=== PATIENT | male | born 1990 | race Two or more races ===

== ENCOUNTER 2025-01-19 12:49 | Inpatient (IN) | payer OTHER, MEDICAID ==
[~2025-01-19] VITALS: Ht 170.2 cm; Wt 73.3 kg
--- NOTE | 2025-01-19 14:01 | ED.PDOC ---
GI ASSESSMENT HPI Comments This is a 34 year old male presenting to the ED with chief complaint of abdominal pain. Patient reports that he has been experiencing diffuse abdominal pain with associated nausea, vomiting, and diarrhea intermittently for the past 2 weeks. Patient relays that he went to urgent care, but was advised to come to the ED due to his symptoms. Patient denies any fever, chills, hematemesis, melena, or syncope. Chief Complaint: Abdominal Pain Time Seen by MD: 13:57 Reviewed Notes: Nurses Notes, Medications, Allergies Allergies: Coded Allergies: NO KNOWN ALLERGIES (Unverified , 01/19/25) Information Source: Patient Mode of Arrival: Ambulatory Timing: Days Duration: Since onset Prehospital treatment: None Quality: Aching Vomitus: Watery Stool: Watery Severity: Moderate Recent: None Recent Hx of: None Pain Location: Diffuse Modifying Factors: Nothing Associated sign and symptoms: Nausea, Vomiting, Diarrhea, Abdominal Pain Past Medical History PAST MEDICAL HISTORY: Denies Surgical History: Denies all surgeries Family History Family History: Reviewed,noncontributory to illness Social History Smoker: Non-Smoker Alcohol: Denies ETOH Use Drugs: Denies Drug Use Lives In: Home Constitutional: denies: chills, diaphoresis, fatigue, fever, malaise, sweats, weakness, others EENTM: denies: blurred vision, double vision, ear bleeding, ear discharge, ear drainage, ear pain, ear ringing, eye pain, eye redness, hearing loss, mouth pain, mouth swelling, nasal discharge, nose bleeding, nose congestion, nose pain, photophobia, tearing, throat pain, throat swelling, voice changes, others Respiratory: denies: cough, hemoptysis, orthopnea, SOB at rest, shortness of breath, SOB with excertion, stridor, wheezing, others Cardiovascular: denies: chest pain, dizzy spells, diaphoresis, Dyspnea on exertion, edema, irregular heart beat, left arm pain, lightheadedness, palpitations, PND, syncope, others Gastrointestinal: reports: abdominal pain, diarrhea, nausea, vomiting; denies: abdomen distended, blood streaked bowels, constipated, dysphagia, difficulty swallowing, hematemesis, melena, poor appetite, poor fluid intake, rectal bleeding, rectal pain, others Genitourinary: denies: burning, dysuria, flank pain, frequency, hematuria, incontinence, penile discharge, penile sore, pain, testicle pain, testicle swelling, urgency, others Neurological: denies: dizziness, fainting, headache, left sided numbness, left sided weakness, numbness, paresthesia, pre-existing deficit, right sided numbness, right sided weakness, seizure, speech problems, tingling, tremors, weakness, others Musculoskeletal: denies: back pain, gout, joint pain, joint swelling, muscle pain, muscle stiffness, neck pain, others Integumetry: denies: bruises, change in color, change in hair/nails, dryness, laceration, lesions, lumps, rash, wounds, others Allergic/Immunocompromised: denies: Difficulty Healing, Frequent Infections, Hives, Itching, others Hematologic/Lymphatic: denies: anemia, blood clots, easy bleeding, easy bruising, swollen glands, others Endocrine: denies: excessive hunger, excessive sweating, excessive thirst, excessive urination, flushing, intolerance to cold, intolerance to heat, unexplained weight gain, unexplained weight loss, others Psychiatric: denies: anxiety, bipolar disorder, depression, hopeless, panic disorder, schizophrenia, sleepless, suicidal, others All Other Systems: Reviewed and Negative Physical Exam General Appearance: No Apparent Distress, Normal HEENT: Normal ENT Inspection, Pharynx Normal, TMs Normal Neck: Full Range of Motion, Non-Tender, Normal, Normal Inspection Respiratory: Chest Non-Tender, Lungs Clear, No Accessory Muscle Use, No Respiratory Distress, Normal Breath Sounds Cardiovascular: No Edema, No JVD, No Murmur, No Gallop, Normal Peripheral Pulses, Regular Rate/Rhythm Breast Exam: Deferred Gastrointestinal: No Organomegaly, No Pulsatile Mass, Normal Bowel Sounds, Soft, Tenderness (Diffuse abdominal tenderness) Genitalia: Deferred Pelvic: Deferred Rectal: Deferred Extremities: No calf tenderness, Normal capillary refill, Normal inspection, Normal range of motion, Non-tender, No pedal edema Musculoskeletal : Apperance: Normal Neurologic: Alert, ehs manager II-XII nml as Tested, No Motor Deficits, Normal Affect, Normal Mood, No Sensory Deficits Cerebellar Function: Normal Reflexes: Normal Skin: Dry, Normal Color, Warm Lymphatic: No Adenopathy Was a procedure done? Was a procedure done?: No GI differential Dx Differential Diagnosis: Gastritis/PUD, Gastroenteritis, GI hemorrhage, PID, UTI, Urolithiasis, Dehydration, Electrolyte Imbalance, Food Poisoning, Hypovolemia X-Ray, Labs, Meds, VS Vital Signs Date Time Temp Pulse Resp B/P (MAP) Pulse Ox O2 Delivery O2 Flow Rate FiO2 01/20/25 07:30 69 17 97 Room Air* 0 21 01/20/25 07:30 97.8 69 17 117/72 (87) 97 97.8 01/20/25 06:35 98.2 78 18 114/68 (83) 97 98.2 01/20/25 05:42 Room Air* 0 21 01/20/25 03:30 98.1 80 16 103/69 (80) 100 98.1 01/20/25 00:48 98.1 91 18 110/65 (80) 99 98.1 01/19/25 18:07 93 19 116/68 01/19/25 16:12 78 17 134/87 01/19/25 14:26 98.7 68 16 118/76 (90) 97 98.7 01/19/25 14:25 70 16 118/76 01/19/25 12:54 97.8 65 13 121/81 98 97.8 Lab Test 01/19/25 14:01 Range/Units White Blood Count 13.0 H 4.4-10.8 10^3/uL Red Blood Count 5.21 4.5-5.90 10^6/uL Hemoglobin 15.0 13.5-17.5 g/dL Hematocrit 44.7 41.0-53.0 % Mean Corpuscular Volume 85.8 80.0-100.0 fL Mean Corpuscular Hemoglobin 28.8 28.0-32.0 pg Mean Corpuscular Hemoglobin Concent 33.6 32.0-36.0 g/dL Red Cell Distribution Width 13.7 11.8-14.3 % Platelet Count 344 140-450 10^3/uL Mean Platelet Volume 8.5 6.9-10.8 fL Neutrophils (%) (Auto) 91.1 H 37.0-80.0 % Lymphocytes (%) (Auto) 5.5 L 10.0-50.0 % Monocytes (%) (Auto) 3.1 0.0-12.0 % Eosinophils (%) (Auto) 0.1 0.0-7.0 % Basophils (%) (Auto) 0.2 0.0-2.0 % Neutrophils # (Auto) 11.8 H 1.6-8.6 10 ^3/uL Lymphocytes # (Auto) 0.7 0.4-5.4 10 ^3/uL Monocytes # (Auto) 0.4 0-1.3 10 ^3/uL Eosinophils # (Auto) 0 0-0.8 10 ^3/uL Basophils # (Auto) 0 0-0.2 10 ^3/uL Nucleated Red Blood Cells 0.0 % Sodium Level 144 136-145 mmol/L Potassium Level 4.2 3.5-5.1 mmol/L Chloride Level 106 98-107 mmol/L Carbon Dioxide Level 25 20-31 mmol/L Anion Gap 13 5-15 Blood Urea Nitrogen 14 9-23 mg/dL Creatinine 1.01 0.700-1.30 mg/dL Glomerular Filtration Rate Calc 101 >90 mL/min BUN/Creatinine Ratio 13.9 10.0-20.0 Serum Glucose 120 H 74-106 mg/dL Calcium Level 10.2 8.7-10.4 mg/dL Total Bilirubin 0.5 0.2-1.0 mg/dL Aspartate Amino Transferase (AST) 17 13-40 U/L Alanine Aminotransferase (ALT) 40 7-40 U/L Alkaline Phosphatase 87 46-116 U/L Total Protein 7.3 5.7-8.2 g/dL Albumin 4.9 H 3.2-4.8 g/dL Lipase 44 12-53 U/L Current Medications Medications (Trade) Dose Ordered Sig/Kassie Route Start Time Stop Time Status Last Admin Sodium Chloride 1,000 ml @ 1,000 mls/hr Q1H ONCE IV 01/19/25 13:45 01/19/25 14:44 DC 01/19/25 14:26 Morphine Sulfate 4 mg ONCE ONCE IV 01/19/25 13:45 01/19/25 13:46 DC 01/19/25 14:25 Ondansetron HCl (Zofran) 4 mg ONCE ONCE IV 01/19/25 13:45 01/19/25 13:46 DC 01/19/25 14:25 Pantoprazole Sodium (Protonix) 40 mg ONCE ONCE IV 01/19/25 13:45 01/19/25 13:46 DC 01/19/25 14:25 Ketorolac Tromethamine (Toradol Injection) 15 mg ONCE ONCE IV 01/19/25 17:45 01/19/25 17:50 DC 01/19/25 18:07 Tamsulosin HCl (Flomax) 0.4 mg ONCE ONCE PO 01/19/25 17:45 01/19/25 17:50 DC 01/19/25 18:07 Morphine Sulfate 4 mg ONCE ONCE IV 01/19/25 17:45 01/19/25 17:50 DC 01/19/25 18:07 Ondansetron HCl (Zofran) 4 mg ONCE ONCE IV 01/19/25 17:45 01/19/25 17:50 DC 01/19/25 18:07 Time of 1ST Reevaluation: 14:57 Reevaluation 1ST: Unchanged Patient Education/Counseling: Diagnosis, Treatment Family Education/Counseling: No Family Present SEPSIS Sepsis Screen Date sepsis recognized/suspect: Jan 19, 2025 Time Sepsis recognized/suspect: 4 Recent Procedure: No On Antibiotic Therapy: No Respiratory Rate >20: No Heart Rate >90: No Temp<36 C (96.8 F) or >38.3 C: No SBP <90 or MAP <65 mmHG: No New Acute Mental Status Change: No Is the patient on CPAP, BIPAP,: No Physician Orders Ct Ab Pel With Iv Con Only (01/19/25 13:42) * Urology Consult (01/19/25 17:39) Vital Signs Date Time Temp Pulse Resp B/P (MAP) Pulse Ox O2 Delivery O2 Flow Rate FiO2 01/20/25 07:30 69 17 97 Room Air* 0 01/20/25 07:30 97.8 69 17 117/72 (87) 97 97.8 01/20/25 06:35 98.2 78 18 114/68 (83) 97 98.2 01/20/25 05:42 Room Air* 0 01/20/25 03:30 98.1 80 16 103/69 (80) 100 98.1 01/20/25 00:48 98.1 91 18 110/65 (80) 99 98.1 01/19/25 18:07 93 19 116/68 01/19/25 16:12 78 17 134/87 01/19/25 14:26 98.7 68 16 118/76 (90) 97 98.7 01/19/25 14:25 70 16 118/76 01/19/25 12:54 97.8 65 13 121/81 98 97.8 Laboratory Tests Test 01/19/25 14:01 White Blood Count 13.0 10^3/uL (4.4-10.8) H Departure 1 Departure Time of Disposition: 17:41 (Patient presented with abdominal pain that was concerning for possible appendicits, gastritis, cholecystitis, colitis, gastroenteritis, sbo, or orther possible surgical emergency. Data: 1. I ordered and reviewed the result of at least 3 labs including a CBC, BMP, and Urinalysis. 2. I independently interpreted the following tests: CT Abdomen and Pelvis is concerning for obstructing ureteral stone .Risk:This patient has a high risk of morbidity due to further diagnostic testing or treatment and may suffer from an acute abdominal process disorder. Workup reveals obstructing ureteral stone and patient should be admitted for further workup. and possible expert consultation. ) Impression: Primary Impression: Ureteral colic Additional Impressions: Intractable abdominal pain Hydronephrosis Disposition: ADMITTED INPATIENT Admit to: Med Surg Condition: Guarded Critical Care Note Critical Care Time?: Yes Critical care comment: Intractable abdominal pain Authorized and Performed by: Gilson Mckeon MD Total critical care time: Approximately 38 minutes Due to a high probability of clinically significant, life threatening deterioration, the patient required my highest level of preparedness to intervene emergently and I personally spent this critical care time directly and personally managing the patient. This critical care time included obtaining a history; examining the patient; pulse oximetry; ordering and review of studies; arranging urgent treatment with development of a management plan; evaluation of patient's response to treatment; frequent reassessment; and, discussions with other providers. This critical care time was performed to assess and manage the high probability of imminent, life-threatening deterioration that could result in multi-organ failure. It was exclusive of separately billable procedures and treating other patients and teaching time. Please see my other sections and the rest of the note for further information on patient assessment and treatment. Stability Stability form required: No Heart Score Heart Score: Heart Score Response (Comments) Value History N/A 0 EKG N/A 0 Age N/A 0 Risk Factors N/A 0 Troponin N/A 0 Total 0 I personally scribed for GILSON MCKEON MD ([email or web address]) on 01/19/25 at 14:01. Electronically submitted by Aroldo Chester ([email or web address]). GILSON MCKEON MD Jan 19, 2025 14:01
[2025-01-19 14:24] LABS: Hematocrit 44.7 % (41.0-53.0); Hemoglobin 15.0 g/dL (13.5-17.5); Mean Corpuscular Hemoglobin 28.8 pg (28.0-32.0); Mean Corpuscular Volume 85.8 fL (80.0-100.0); Nucleated Red Blood Cells % 0.0 %
[2025-01-19] MEDS: ONDANSETRON HCL 4 MG/2 ML VIAL IV ONE ×2 (14:25→18:07)
[2025-01-19] MEDS: MORPHINE SULFATE 4 MG/ML SYR/VIAL IV ONE ×2 (14:25→18:07)
[2025-01-19] MEDS: PANTOPRAZOLE 40 MG/10 ML VIAL INJ IV ONE (14:25)
[2025-01-19] MEDS: SODIUM CHLORIDE 0.9% 1,000 ML IV ONE (14:26)
[2025-01-19 14:42] LABS: Alkaline Phosphatase 87 U/L (46-116); Anion Gap 13 (5-15); BUN/Creatinine Ratio 13.9 (10.0-20.0); Blood Urea Nitrogen 14 mg/dL (9-23); Calcium 10.2 mg/dL (8.7-10.4); Carbon Dioxide 25 mmol/L (20-31); Chloride 106 mmol/L (98-107); Lipase 44 U/L (12-53); Potassium 4.2 mmol/L (3.5-5.1); Sodium 144 mmol/L (136-145); Total Protein 7.3 g/dL (5.7-8.2)
[2025-01-19 14:43] LABS: Bilirubin, Total 0.5 mg/dL (0.2-1.0)
[2025-01-19 14:46] LABS: Alanine Aminotransferase 40 U/L (7-40); Albumin 4.9 g/dL (3.2-4.8); Glucose 120 mg/dL (74-106)
[2025-01-19] MEDS: IOHEXOL 300 MG/ML 100ML BOTTLE IJ ONE (16:08)
--- NOTE | 2025-01-19 17:31 | DVH ---
Exam: CT CT AB PEL WITH IV CON ONLY History: abdominal pain Comparison Study: None TECHNIQUE: Multidetector CT of the abdomen and pelvis with IV contrast. Axial, coronal and sagittal multiplanar reformats were obtained from the axial data set by the technologist. Radiation Dose Information: CT Dose: CTDI volume is 9.59 mGy. Dose-length product is 569.13 mGy*cm FINDINGS: Right basilar atelectasis. Partially visualized heart is unremarkable. Liver, spleen, pancreas and adrenal glands unremarkable. Cholelithiasis without evidence for acute cholecystitis. Punctate nonobstructing left renal calculus. Mild left hydroureteronephrosis with a 5 x 4 mm calculus over the left ureterovesical junction. Left kidney is unremarkable. Mild wall thickening of the Urinary bladder which is most likely from inadequate distention. Prostate is unremarkable. Stomach is unremarkable. Small bowel loops unremarkable. Is unremarkable. Large amount of fecal material within the ascending colon with moderate amount of fecal material within the transverse colon and descending colon. Small amount of fecal material within the sigmoid and rectum. Mild wall thickening of the rectum which is most likely from inadequate distention. No evidence of intraperitoneal free air or free fluid. No evidence of aortic aneurysm or dissection. No significant lymphadenopathy. Tiny fat containing umbilical hernia. Soft tissues unremarkable. No evidence of acute osseous abnormalities. Sclerotic focus over the right acetabulum which may represent a small bone island. IMPRESSION: 5 x 4 mm obstructing calculus over the left ureterovesical junction with associated mild left-sided hydroureteronephrosis
[2025-01-19] MEDS: KETOROLAC TROMETH 30 MG/ML 1ML VIAL IV ONE (18:07)
[2025-01-19] MEDS: TAMSULOSIN HYDROCHLORIDE 0.4 MG CAP PO ONE (18:07)
[2025-01-20 07:30] VITALS: PULSE 69; RESP 17; O2SAT 97
[2025-01-20] MEDS: ONDANSETRON HCL 4 MG/2 ML VIAL IV ONE (07:59)
[2025-01-20] MEDS: MORPHINE SULFATE 4 MG/ML SYR/VIAL IV ONE (08:00)
[2025-01-20] MEDS ORDERED: ACETAMINOPHEN 325 MG TAB PO PRN (08:45)
[2025-01-20] MEDS: MANNITOL FTV 25% 12.5 GM/50 ML 50 ML IV ONE ×2 (08:45→10:39)
--- NOTE | 2025-01-20 08:59 | DVHHPRES ---
History of Present Illness Resident Creating Document: JENI MCKEE History of Present Illness This is a 34-year-old male with no significant past medical history, prediabetes who presented to the ED with chief complaint of acute abdominal pain. Patient reports that he was on camping with her girlfriend and Sunday and Sunday early in the morning he started feeling fatigued with a associated nausea, vomiting and diffuse abdominal pain located in the upper abdomen and umbilical region. The patient rates the pain as 10/10 on the pain scale slightly diffuse in the upper abdomen w/o specific pattern of radiation. The patient also reports chills when he visit the urgent care previous to come to the ED but denied any fever or any additional symptoms. The patient also reported episodes of diarrhea two weeks back but no recent episode of diarrhea at this time. Upon arrival to the ED, initial CBC showed WBC of 13.0 and very mild NENITA with a cre atinine of 1.01. Lipase was normal range as well as liver enzymes. A CT of the abdomen and pelvis was performed showing a five X 4 mm obstructing calculi over the left ureterovesical junction with a associated mild left-sided hydroureteronephrosis. We will start the patient on IV fluids, tamsulosin, one dose of mannitol and pain medication with Tylenol and ketorolac. We will admit the patient for left-sided nephrolithiasis with associated hydroureteronephrosis. Past medical history: Prediabetes, dyslipidemia? Home medications: Multivitamins Surgical history: Denies Social history: Denies alcohol consumption, drugs or smoking. Patient lives with his father Cardiovascular: hyperipidemia Endocrine: Other (Prediabetes) Past Surgical History: None Family History: None Smoke: No ALCOHOL: none Drugs: None Lives: with Family Domestic Violence: Neg Review of Systems Constitutional: Yes: Chills, Weakness, Malaise; No: Fever, Sweats, Other Eyes: No: Pain, Vision change, Conjunctivae inflammation, Eyelid inflammation, Other, Redness ENT: No: Ear pain, Ear discharge, Nose pain, Nose discharge, Nose congestion, Mouth pain, Mouth swelling, Throat pain, Throat swelling, Other Respiratory: No: Cough, Dry, Shortness of breath, SOB with excertion, Wheezing, Hemoptysis, Pleuritic Pain, Sputum, Wheezing, Other Cardiovascular: No: Chest Pain, Palpitations, Orthopnea, Paroxysmal Noc. Dyspnea, Edema, Lt Headedness, Other Gastrointestinal: Nausea, Vomiting, Abdominal Pain; No: Diarrhea, Constipation, Melena, Hematochezia, Other Genitourinary: No Dysuria, No Frequency, No Incontinence, No Hematuria, No Retention, No Other Musculoskeletal: No: other, neck pain, shoulder pain, arm pain, back pain, hand pain, leg pain, foot pain Skin: No: Rash, Lesions, Jaundice, Bruising, Other Neurological: No: Weakness, Numbness, Incoordination, Change in speech, Confusion, Seizures, Other Allergies: Coded Allergies: NO KNOWN ALLERGIES (Unverified , 01/19/25) Exam Vital Signs Vital Signs Date Time Temp Pulse Resp B/P (MAP) Pulse Ox O2 Delivery O2 Flow Rate FiO2 01/20/25 08:00 69 17 117/72 01/20/25 07:30 97 Room Air* 0 21 01/20/25 07:30 97.8 97.8 General Appearance: Alert, Oriented X3, Cooperative, moderate distress HEENT: Atraumatic, PERRLA, EOMI, Mucous membr. moist/pink Respiratory: Clear to auscultation, Normal air movement Cardiovascular: Regular rate, Normal S1, Normal S2, No murmurs Abdominal: Normal bowel sounds, Soft, Other (There is tenderness to palpation in the upper abdomen and umbilical region, there is no left or right-sided costo vertebral angle tenderness at this time.) Extremities: No clubbing, No cyanosis, No edema, Normal pulses, No tenderness/swelling Skin: No rashes, No breakdown, No significant lesion Neuro: Normal gait, Normal speech, Strength at 5/5 X4 ext, Normal tone, Sensation intact, Cranial nerves 3-12 NL, Reflexes 2+ Psych/Mental Status: Mental status NL, Mood NL Labs/Xrays Labs Test 01/19/25 14:01 Range/Units White Blood Count 13.0 H 4.4-10.8 10^3/uL Red Blood Count 5.21 4.5-5.90 10^6/uL Hemoglobin 15.0 13.5-17.5 g/dL Hematocrit 44.7 41.0-53.0 % Mean Corpuscular Volume 85.8 80.0-100.0 fL Mean Corpuscular Hemoglobin 28.8 28.0-32.0 pg Mean Corpuscular Hemoglobin Concent 33.6 32.0-36.0 g/dL Red Cell Distribution Width 13.7 11.8-14.3 % Platelet Count 344 140-450 10^3/uL Mean Platelet Volume 8.5 6.9-10.8 fL Neutrophils (%) (Auto) 91.1 H 37.0-80.0 % Lymphocytes (%) (Auto) 5.5 L 10.0-50.0 % Monocytes (%) (Auto) 3.1 0.0-12.0 % Eosinophils (%) (Auto) 0.1 0.0-7.0 % Basophils (%) (Auto) 0.2 0.0-2.0 % Neutrophils # (Auto) 11.8 H 1.6-8.6 10 ^3/uL Lymphocytes # (Auto) 0.7 0.4-5.4 10 ^3/uL Monocytes # (Auto) 0.4 0-1.3 10 ^3/uL Eosinophils # (Auto) 0 0-0.8 10 ^3/uL Basophils # (Auto) 0 0-0.2 10 ^3/uL Nucleated Red Blood Cells 0.0 % Sodium Level 144 136-145 mmol/L Potassium Level 4.2 3.5-5.1 mmol/L Chloride Level 106 98-107 mmol/L Carbon Dioxide Level 25 20-31 mmol/L Anion Gap 13 5-15 Blood Urea Nitrogen 14 9-23 mg/dL Creatinine 1.01 0.700-1.30 mg/dL Glomerular Filtration Rate Calc 101 >90 mL/min BUN/Creatinine Ratio 13.9 10.0-20.0 Serum Glucose 120 H 74-106 mg/dL Calcium Level 10.2 8.7-10.4 mg/dL Total Bilirubin 0.5 0.2-1.0 mg/dL Aspartate Amino Transferase (AST) 17 13-40 U/L Alanine Aminotransferase (ALT) 40 7-40 U/L Alkaline Phosphatase 87 46-116 U/L Total Protein 7.3 5.7-8.2 g/dL Albumin 4.9 H 3.2-4.8 g/dL Lipase 44 12-53 U/L SEPSIS Sepsis Screen Date sepsis recognized/suspect: Jan 20, 2025 Time Sepsis recognized/suspect: 614 Recent Procedure: No On Antibiotic Therapy: No Respiratory Rate >20: No Heart Rate >90: No Temp<36 C (96.8 F) or >38.3 C: No SBP <90 or MAP <65 mmHG: No New Acute Mental Status Change: No Is the patient on CPAP, BIPAP,: No Physician Orders Admit (01/20/25 08:41) Code Status (01/20/25 08:41) Vital Signs .PER UNIT PROTOCOL (01/20/25 08:41) Review Orders With Adm.Md (01/20/25 08:41) Encourage Activity As Tolerate (01/20/25 08:41) Consistent [facility])Diabetes (01/20/25 Breakfast) Acetaminophen Tablet (Tylenol Tablet) (01/20/25 08:45) Notify Md Of Changes From Base (01/20/25 08:41) Advance Directive (01/20/25 08:41) Basic Metabolic Panel (01/21/25 04:00) Urinalysis (01/20/25 08:41) Complete Blood Count (01/21/25 04:00) Lipid Panel (01/20/25 08:41) Patient Condition (01/20/25 08:41) Allergies (01/20/25 08:41) Drug Screen (01/20/25 08:41) Hemoglobin A1c (01/20/25 08:41) NS (01/20/25 08:45) Ketorolac Injection (Toradol Injection) (01/20/25 08:45) Tamsulosin Hydrochloride (Flomax) (01/20/25 10:00) Mannitol Acute Renal Failure (01/20/25 08:45) Vital Signs Date Time Temp Pulse Resp B/P (MAP) Pulse Ox O2 Delivery O2 Flow Rate FiO2 01/20/25 08:00 69 17 117/72 01/20/25 07:30 69 17 97 Room Air* 0 21 01/20/25 07:30 97.8 69 17 117/72 (87) 97 97.8 01/20/25 06:35 98.2 78 18 114/68 (83) 97 98.2 01/20/25 05:42 Room Air* 0 21 01/20/25 03:30 98.1 80 16 103/69 (80) 100 98.1 Medications Medications Dose Ordered Sig/Kassie Route Start Time Stop Time Status Last Admin Dose Admin Morphine Sulfate 4 mg ONCE ONCE IV 01/20/25 07:45 01/20/25 07:46 DC 01/20/25 08:00 4 MG Ondansetron HCl 4 mg ONCE ONCE IV 01/20/25 07:45 01/20/25 07:46 DC 01/20/25 07:59 4 MG Assessment/Plan Assessment/Plan Assessment/plan Acute abdominal pain due to left-sided nephrolithiasis Acute left-sided nephrolithiasis with associated hydroureteronephrosis Possible acute viral gastroenteritis Mild NENITA likely due to VMN History of prediabetes History of dyslipidemia Plan -CT scan of the abdomen and pelvis showed a five X 4 mm obstructing calculus over the left ureterovesical junction with a associated mild left-sided hydroureteronephrosis -1 L of IV fluids was given in the ER -continue 0.9% NS at 100 cc/hour -start tamsulosin 0.4 mg daily -mannitol 12.5 single dose -pain medication with ketorolac Q6 PRN and Tylenol PRN -Will order kidney U/S -No need for urology consult at this time, will try medical approach based on kidney stone size. -Ordered Hba1c and lipid panel. will treat if needed Goals of care discussed with the patient and father at bedside, FULL CODE Plan discussed with Dr. Samuel Plan discussed with: Patient, Other (father) My Orders Orders - JENI MCKEE Procedure Category Date Status Time Admit ADMIT 01/20/25 Transmitted 08:41 Code Status CODE 01/20/25 Transmitted 08:41 Vital Signs KAILEE 01/20/25 Transmitted 08:41 Review Orders With KAILEE 01/20/25 Transmitted 08:41 Encourage Activity As KAILEE 01/20/25 Transmitted Tolerate 08:41 Consistent DIET 01/20/25 Transmitted Carb(Ccho)Diabetes Breakfast Acetaminophen Tablet PHA 01/20/25 Transmitted (Tylenol Tablet) 08:45 Notify Of Changes KAILEE 01/20/25 Transmitted From Base 08:41 Advance Directive [facility] 01/20/25 Transmitted 08:41 Basic Metabolic Panel LAB 01/21/25 Verified 04:00 Urinalysis LAB 01/20/25 Transmitted 08:41 Complete Blood Count LAB 01/21/25 Verified 04:00 Lipid Panel LAB 01/20/25 Transmitted 08:41 Patient Condition ORDERS 01/20/25 Transmitted 08:41 Allergies [facility] 01/20/25 Transmitted 08:41 Drug Screen LAB 01/20/25 Verified 08:41 Hemoglobin A1c LAB 01/20/25 Verified 08:41 NS PHA 01/20/25 Transmitted 08:45 Ketorolac Injection PHA 01/20/25 Verified (Toradol Injection) 08:45 Tamsulosin PHA 01/20/25 Verified Hydrochloride (Flomax) 10:00 Mannitol Acute Renal PHA 01/20/25 Verified Failure 08:45 Date of Service: Jan 20, 2025 Billing Provider: ENRIQUETA SAMUEL MD Common Visit Codes: [id number] INP/OBS CARE (HIGH) Secondary Visit Codes: [id number] CARE PLAN 30 MINUTES JENI MCKEE RESIDENT Jan 20, 2025 08:59
--- NOTE | 2025-01-20 09:54 | DVHINCON2 ---
Date of service: Jan 20, 2025 Referring Physician ER Reason for Consultation Left hydronephrosis 5 mm left distal ureteral stone History of Present Illness 34 year old male presenting to the ED with chief complaint of abdominal pain. Patient reports that he has been experiencing diffuse abdominal pain with associated nausea, vomiting, and diarrhea intermittently for the past 2 weeks. Patient relays that he went to urgent care, but was advised to come to the ED due to his symptoms. Patient denies any fever, chills, hematemesis, melena, or syncope. Chief Complaint: Abdominal Pain Reviewed Notes: Nurses Notes, Medications, Allergies Allergies: Coded Allergies: NO KNOWN ALLERGIES (Unverified , 01/19/25) Information Source: Patient Mode of Arrival: Ambulatory Timing: Days Duration: Since onset Prehospital treatment: None Quality: Aching Vomitus: Watery Stool: Watery Severity: Moderate Recent: None Recent Hx of: None Pain Location: Diffuse Modifying Factors: Nothing Associated sign and symptoms: Nausea, Vomiting, Diarrhea, Abdominal Pain Allergies: Coded Allergies: NO KNOWN ALLERGIES (Unverified , 01/19/25) Current Medications Current Medications Medications (Trade) Dose Ordered Sig/Kassie Route PRN Reason Start Time Stop Time Status Last Admin Acetaminophen (Tylenol Tablet) 650 mg Q6HP PRN PO PAIN SCALE 1-3 OR TEMP>100.4 01/20/25 08:45 Ketorolac Tromethamine (Toradol Injection) 15 mg Q6HPRN PRN IV Moderate pain 01/20/25 08:45 01/25/25 08:44 Tamsulosin HCl (Flomax) 0.4 mg DAILY@1900 PO 01/20/25 19:00 Review of Systems Constitutional: denies: chills, diaphoresis, fatigue, fever, malaise, sweats, weakness, others EENTM: denies: blurred vision, double vision, ear bleeding, ear discharge, ear drainage, ear pain, ear ringing, eye pain, eye redness, hearing loss, mouth pain, mouth swelling, nasal discharge, nose bleeding, nose congestion, nose pain, photophobia, tearing, throat pain, throat swelling, voice changes, others Respiratory: denies: cough, hemoptysis, orthopnea, SOB at rest, shortness of breath, SOB with excertion, stridor, wheezing, others Cardiovascular: denies: chest pain, dizzy spells, diaphoresis, Dyspnea on exertion, edema, irregular heart beat, left arm pain, lightheadedness, palpitations, PND, syncope, others Gastrointestinal: reports: abdominal pain, diarrhea, nausea, vomiting; denies: abdomen distended, blood streaked bowels, constipated, dysphagia, difficulty swallowing, hematemesis, melena, poor appetite, poor fluid intake, rectal bleeding, rectal pain, others Genitourinary: denies: burning, dysuria, flank pain, frequency, hematuria, incontinence, penile discharge, penile sore, pain, testicle pain, testicle swelling, urgency, others Neurological: denies: dizziness, fainting, headache, left sided numbness, left sided weakness, numbness, paresthesia, pre-existing deficit, right sided numbness, right sided weakness, seizure, speech problems, tingling, tremors, weakness, others Musculoskeletal: denies: back pain, gout, joint pain, joint swelling, muscle pain, muscle stiffness, neck pain, others Integumetry: denies: bruises, change in color, change in hair/nails, dryness, laceration, lesions, lumps, rash, wounds, others Allergic/Immunocompromised: denies: Difficulty Healing, Frequent Infections, Hives, Itching, others Hematologic/Lymphatic: denies: anemia, blood clots, easy bleeding, easy bruising, swollen glands, others Endocrine: denies: excessive hunger, excessive sweating, excessive thirst, excessive urination, flushing, intolerance to cold, intolerance to heat, unexplained weight gain, unexplained weight loss, others Psychiatric: denies: anxiety, bipolar disorder, depression, hopeless, panic disorder, schizophrenia, sleepless, suicidal, others All Other Systems: Reviewed and Negative Vital Signs Vital Signs Date Time Temp Pulse Resp B/P (MAP) Pulse Ox O2 Delivery O2 Flow Rate FiO2 01/20/25 08:00 69 17 117/72 01/20/25 07:30 97 Room Air* 0 21 01/20/25 07:30 97.8 97.8 Physical Exam General Appearance: No Apparent Distress, Normal HEENT: Normal ENT Inspection, Pharynx Normal, TMs Normal Neck: Full Range of Motion, Non-Tender, Normal, Normal Inspection Respiratory: Chest Non-Tender, Lungs Clear, No Accessory Muscle Use, No Respiratory Distress, Normal Breath Sounds Cardiovascular: No Edema, No JVD, No Murmur, No Gallop, Normal Peripheral Pulses, Regular Rate/Rhythm Breast Exam: Deferred Gastrointestinal: No Organomegaly, No Pulsatile Mass, Normal Bowel Sounds, Soft, Tenderness (Diffuse abdominal tenderness) Genitalia: Deferred Pelvic: Deferred Rectal: Deferred Extremities: No calf tenderness, Normal capillary refill, Normal inspection, Normal range of motion, Non-tender, No pedal edema Musculoskeletal : Apperance: Normal Neurologic: Alert, noteman II-XII nml as Tested, No Motor Deficits, Normal Affect, Normal Mood, No Sensory Deficits Cerebellar Function: Normal Reflexes: Normal Skin: Dry, Normal Color, Warm Lymphatic: No Adenopathy Labs/Diagnostic Data Labs Test 01/19/25 14:01 Range/Units White Blood Count 13.0 H 4.4-10.8 10^3/uL Red Blood Count 5.21 4.5-5.90 10^6/uL Hemoglobin 15.0 13.5-17.5 g/dL Hematocrit 44.7 41.0-53.0 % Mean Corpuscular Volume 85.8 80.0-100.0 fL Mean Corpuscular Hemoglobin 28.8 28.0-32.0 pg Mean Corpuscular Hemoglobin Concent 33.6 32.0-36.0 g/dL Red Cell Distribution Width 13.7 11.8-14.3 % Platelet Count 344 140-450 10^3/uL Mean Platelet Volume 8.5 6.9-10.8 fL Neutrophils (%) (Auto) 91.1 H 37.0-80.0 % Lymphocytes (%) (Auto) 5.5 L 10.0-50.0 % Monocytes (%) (Auto) 3.1 0.0-12.0 % Eosinophils (%) (Auto) 0.1 0.0-7.0 % Basophils (%) (Auto) 0.2 0.0-2.0 % Neutrophils # (Auto) 11.8 H 1.6-8.6 10 ^3/uL Lymphocytes # (Auto) 0.7 0.4-5.4 10 ^3/uL Monocytes # (Auto) 0.4 0-1.3 10 ^3/uL Eosinophils # (Auto) 0 0-0.8 10 ^3/uL Basophils # (Auto) 0 0-0.2 10 ^3/uL Nucleated Red Blood Cells 0.0 % Sodium Level 144 136-145 mmol/L Potassium Level 4.2 3.5-5.1 mmol/L Chloride Level 106 98-107 mmol/L Carbon Dioxide Level 25 20-31 mmol/L Anion Gap 13 5-15 Blood Urea Nitrogen 14 9-23 mg/dL Creatinine 1.01 0.700-1.30 mg/dL Glomerular Filtration Rate Calc 101 >90 mL/min BUN/Creatinine Ratio 13.9 10.0-20.0 Serum Glucose 120 H 74-106 mg/dL Calcium Level 10.2 8.7-10.4 mg/dL Total Bilirubin 0.5 0.2-1.0 mg/dL Aspartate Amino Transferase (AST) 17 13-40 U/L Alanine Aminotransferase (ALT) 40 7-40 U/L Alkaline Phosphatase 87 46-116 U/L Total Protein 7.3 5.7-8.2 g/dL Albumin 4.9 H 3.2-4.8 g/dL Lipase 44 12-53 U/L PATIENT: FREDA HERRERA ACCT: [id number] UNIT: [id number] : 1990 LOC: ER ROOM / BED: / AGE / SEX: 34 / M ADM STATUS: REG ER SERVICE 1342 ORDERING PHYSICIAN: GILSON CURRY MD PROCEDURE(s): ABPLIV - CT AB PEL WITH IV CON ONLY REASON: abdominal pain ORDER NUMBER(s): [id number], ACCESSION NUMBER(s): [id number] Exam: CT CT AB PEL WITH IV CON ONLY History: abdominal pain Comparison Study: None TECHNIQUE: Multidetector CT of the abdomen and pelvis with IV contrast. Axial, coronal and sagittal multiplanar reformats were obtained from the axial data set by the technologist. Radiation Dose Information: CT Dose: CTDI volume is 9.59 mGy. Dose-length product is 569.13 mGy*cm FINDINGS: Right basilar atelectasis. Partially visualized heart is unremarkable. Liver, spleen, pancreas and adrenal glands unremarkable. Cholelithiasis without evidence for acute cholecystitis. Punctate nonobstructing left renal calculus. Mild left hydroureteronephrosis with a 5 x 4 mm calculus over the left ureterovesical junction. Left kidney is unremarkable. Mild wall thickening of the Urinary bladder which is most likely from inadequate distention. Prostate is unremarkable. Stomach is unremarkable. Small bowel loops unremarkable. Is unremarkable. Large amount of fecal material within the ascending colon with moderate amount of fecal material within the transverse colon and descending colon. Small amount of fecal material within the sigmoid and rectum. Mild wall thickening of the rectum which is most likely from inadequate distention. No evidence of intraperitoneal free air or free fluid. No evidence of aortic aneurysm or dissection. No significant lymphadenopathy. Tiny fat containing umbilical hernia. Soft tissues unremarkable. No evidence of acute osseous abnormalities. Sclerotic focus over the right acetabulum which may represent a small bone island. IMPRESSION: 5 x 4 mm obstructing calculus over the left ureterovesical junction with associated mild left-sided hydroureteronephrosis Assessment Left distal UVJ stone, 5 mm Left hydronephrosis, mild Left flank pain Plan/Recommendation Expulsive measures Bladder US to check for ureteral jetting Left ESWL, possible stent placement Plan discussed with: Patient, Other FREDERICK MOORE MD Jan 20, 2025 09:54
[2025-01-20] MEDS: SODIUM CHLORIDE 0.9% 1,000 ML IV ONE (10:40)
--- NOTE | 2025-01-20 10:50 | DVH ---
INDICATION: left sided hydroureteronephrosis TECHNIQUE: Multiple real-time sonographic images of the kidneys and bladder were obtained. COMPARISON: None FINDINGS: The right kidney measures 9 cm in length, which is normal in size. There is normal echogenicity of the right kidney. No hydronephrosis. The left kidney measures 11 cm in length, which is normal in size. There is normal echogenicity of the left kidney. Mild hydronephrosis. No large intraluminal masses are seen in the bladder. Prior to voiding the bladder volume measures volume 752 cc. IMPRESSION: Mild left hydronephrosis.
[2025-01-20 11:30] LABS: Urine Protein, UAD TRACE (Negative)
[2025-01-20 16:38] LABS: Triglycerides 86 mg/dL (< 150)
[2025-01-20 16:39] LABS: Amphetamine Screen, Urine Neg (NEGATIVE); Barbiturate Scree,Urine Neg (NEGATIVE); Benzodiazephine Screen, Urine Neg (NEGATIVE); Cocaine Screen, Urine Neg (NEGATIVE); Opiate Scree,Urine Pos (NEGATIVE); Phencyclidine Screen, Urine Neg (NEGATIVE)
[2025-01-20 16:39] LABS: Cholesterol 120 mg/dL (< 200)
[2025-01-20 16:40] LABS: Cannabinoid Screen, Urine Neg (NEGATIVE)
[2025-01-20 16:40] LABS: HDL Cholesterol 28 mg/dL (40-59)
[2025-01-20] MEDS ORDERED: MEPERIDINE HCL (25 MG/ML) 1ML VIAL ONE (19:54)
[2025-01-20] MEDS ORDERED: MIDAZOLAM HCL 2MG/2ML 2ml VIAL (1mg/ml) ONE (19:54)
[2025-01-20] MEDS ORDERED: fentaNYL CITRATE 100 MCG/2 ML VL ONE (19:54)
[2025-01-20] MEDS: CIPROFLOXACIN 400MG/200ML 200 ML IV ONE (20:00)
[2025-01-20] MEDS ORDERED: PROPOFOL 10 MG/ML 20 ML IV ONE (20:11)
[2025-01-20] MEDS ORDERED: ONDANSETRON HCL 4 MG/2 ML VIAL ONE (20:11)
--- NOTE | 2025-01-20 20:31 | DVHNC2 ---
Procedure - OPERATIVE REPORT Pre-op. Diagnosis: Left distal ureteral stone, 5 mm Left flank pain Post-op. Diagnosis: Same as pre-op diagnosis Operation: Extracorporeal Shockwave Lithotripsy Anesthesia: General Indications: Patient was found to have symptomatic Urolithiasis. Patient is here to undergo ESWL therapy. Informed Consent: The procedure was explained to the patient. It's risks include but not limited to infection, bleeding, and damage to the kidney. Patient fully understood and signed the consent. Other options such as watchful waiting, Ureteroscopy, Percutaneous surgery and open surgery were also discussed. Details of Procedure: Under satisfactory anesthesia, the patient was positioned on the lithotripsy table. Using fluoroscopy the stone was localized. Starting at low energy levels, shockwave treatment was commenced. The energy level was gradually increased and stone was fragmented. Once the treatment was completed, patient was then taken off the lithotripsy table and sent to recovery room in stable condition. Specimens: None Complications: None Findings: Stone Laterality: left Stone Location: distal UVJ 5 mm stone Shocks Delivered: 1500 Max Power settin Fragmentation Quality: Well Notes: Diagnosis: Visit Code: Procedure Codes: 30697 FRAGMENTING OF KIDNEY STONE. FREDERICK MOORE MD Jan 20, 2025 20:31
[2025-01-20 20:45] VITALS: PULSE 78; RESP 17; O2SAT 99
[2025-01-20] MEDS ORDERED: MIDAZOLAM HCL 2MG/2ML 2ml VIAL (1mg/ml) IV PRN (20:45)
[2025-01-20] MEDS ORDERED: MORPHINE SULFATE 4 MG/ML SYR/VIAL IV PRN (20:45)
[2025-01-20] MEDS ORDERED: ONDANSETRON HCL 4 MG/2 ML VIAL IV PRN (20:45)
[2025-01-20] MEDS: KETOROLAC TROMETH 30 MG/ML 1ML VIAL IV ONE (20:45)
[2025-01-20] MEDS ORDERED: HYDROmorphone HCL 2 MG/ML VL/or syr IV PRN (20:45)
[2025-01-20] MEDS ORDERED: hydrALAZINE HCL 20 MG/ML VL IV PRN (20:45)
[2025-01-20 22:48] VITALS: BP 129/78; PULSE 93; RESP 17; TEMP 97.5; O2SAT 96
[2025-01-20] MEDS: TAMSULOSIN HYDROCHLORIDE 0.4 MG CAP PO SCH (23:10)
[2025-01-21] VITALS (7 sets, daily range): BP systolic 99–108; BP diastolic 54–66; PULSE 75–95; RESP 14–18; TEMP 96.8–97.9; O2SAT 94–97
[2025-01-21] MEDS: KETOROLAC TROMETH 30 MG/ML 1ML VIAL IV PRN (00:01)
[2025-01-21 06:52] LABS: Hematocrit 41.7 % (41.0-53.0); Hemoglobin 14.2 g/dL (13.5-17.5); Mean Corpuscular Hemoglobin 29.2 pg (28.0-32.0); Mean Corpuscular Volume 85.6 fL (80.0-100.0); Nucleated Red Blood Cells % 0.1 %
[2025-01-21 07:01] LABS: Anion Gap 13 (5-15); Carbon Dioxide 26 mmol/L (20-31); Chloride 105 mmol/L (98-107); Potassium 3.5 mmol/L (3.5-5.1); Sodium 144 mmol/L (136-145)
[2025-01-21 07:03] LABS: Calcium 9.3 mg/dL (8.7-10.4)
[2025-01-21 07:08] LABS: BUN/Creatinine Ratio 12.0 (10.0-20.0); Blood Urea Nitrogen 11 mg/dL (9-23)
[2025-01-21 07:10] LABS: Glucose 113 mg/dL (74-106)
--- NOTE | 2025-01-21 13:15 | DVHPN2 ---
Reviewed: Care Plan, H&P, Labs, Medications, Previous Orders, Radiology Changes from previous H/P or p: No Changes Eyes: No Pain, No Vision change, No Conjunctivae inflammation, No Eyelid inflammation, No Other, No Redness ENT: No Ear pain, No Ear discharge, No Nose pain, No Nose discharge, No Nose congestion, No Mouth pain, No Mouth swelling, No Throat pain, No Throat swelling, No Other Cardiovascular: No Chest Pain, No Palpitations, No Orthopnea, No Paroxysmal Noc. Dyspnea, No Edema, No Lt Headedness, No Other Respiratory: No Cough, No Dry, No Shortness of breath, No SOB with excertion, No Wheezing, No Hemoptysis, No Pleuritic Pain, No Sputum, No Other Gastrointestinal: Nausea, Vomiting, Abdominal Pain Genitourinary: No Dysuria, No Frequency, No Incontinence, No Hematuria, No Retention, No Other Musculoskeletal: No other, No neck pain, No shoulder pain, No arm pain, No back pain, No hand pain, No leg pain, No foot pain Skin: No Rash, No Lesions, No Jaundice, No Bruising, No Other Objective Vitals Vital Signs Date Time Temp Pulse Resp B/P (MAP) Pulse Ox O2 Delivery O2 Flow Rate FiO2 01/21/25 09:00 96.8 92 18 106/64 (78) 96 96.8 01/20/25 22:48 Room Air* 0 21 Intake/Output Intake and Output 01/21/25 07:00 Intake Total 1050 ml Output Total 1450 ml Balance -400 ml Intake Oral 400 ml IV Total 650 ml Output Urine Total 1450 ml # Voids 1 Medications Current Medications Medications Dose Ordered Sig/Kassie Route Start Time Stop Time Status Last Admin Dose Admin Acetaminophen 650 mg Q6HP PRN PO 01/20/25 08:45 Ketorolac Tromethamine 15 mg Q6HPRN PRN IV 01/20/25 08:45 01/25/25 08:44 01/21/25 09:18 15 MG Tamsulosin HCl 0.4 mg DAILY@1900 PO 01/20/25 19:00 01/20/25 23:10 0.4 MG Laboratory Results Laboratory Tests 01/21/25 05:22 Chemistry Test 01/21/25 05:22 Calcium Level 9.3 mg/dL (8.7-10.4) Lipid panel Test 01/20/25 13:50 Cholesterol Level 120 mg/dL (< 200) HDL Cholesterol 28 mg/dL (40-59) L Triglycerides Level 86 mg/dL (< 150) HgA1c, TSH Test 01/20/25 13:50 Hemoglobin A1c 5.3 % A1C (<5.7) Urinalysis Test 01/20/25 09:59 Urine Color Yellow (Yellow) Urine Clarity Clear (Clear) Urine pH 6.0 (5.0-9.0) Urine Specific [place] > 1.050 (1.001-1.035) Urine Protein Trace (Negative) H Urine Ketones 1+ (Negative) H Urine Blood 2+ /uL (Negative) H Urine Nitrite Negative (Negative) Urine Bilirubin Negative (Negative) Urine Urobilinogen Normal mg/dL (Negative) Urine Leukocyte Esterase Negative /uL (Negative) Urine RBC 29 /hpf (0 - 3) Urine Microscopic WBC 2 /HPF (0-3) Urine Squamous Epithelial Cells Few /hpf (<5) Urine Bacteria None seen /hpf (None Seen) Urine Mucus Few (None Seen) Urine Glucose Normal mg/dL (Normal) Labs and/or images reviewed: Labs reviewed by me, Image(s) reviewed by me Assessment/Plan Assessment/Plan Acute abdominal pain due to left-sided nephrolithiasis Acute left-sided nephrolithiasis with associated hydroureteronephrosis status post ESWL by Possible acute viral gastroenteritis Mild NENITA likely due to VMN History of prediabetes History of dyslipidemia Time spent 45 minutes Plan discussed with: Patient Date of Service: Jan 21, 2025 Billing Provider: SEGUN DEJESUS MD Common Visit Codes: [id number] INP/OBS CARE(HIGH) SEGUN DEJESUS MD Jan 21, 2025 13:15
[2025-01-21] MEDS: SODIUM CHLORIDE 0.9% 1,000 ML IV SCH (13:30)
[2025-01-22 00:50] VITALS: BP 102/63; PULSE 73; RESP 16; TEMP 97.9; O2SAT 96
[2025-01-22 04:27] VITALS: BP 90/57; PULSE 70; RESP 15; TEMP 97.6; O2SAT 97
[2025-01-22 08:45] VITALS: BP 100/62; PULSE 59; RESP 16; TEMP 97.8; O2SAT 96
[2025-01-22] MEDS ORDERED: TAMS-35 PO (09:09)
[2025-01-22] MEDS ORDERED: TRAM-626 PO (09:09)
--- NOTE | 2025-01-22 09:12 | DVHPN2 ---
Reviewed: Care Plan, H&P, Labs, Medications, Previous Orders, Radiology Changes from previous H/P or p: No Changes Eyes: No Pain, No Vision change, No Conjunctivae inflammation, No Eyelid inflammation, No Other, No Redness ENT: No Ear pain, No Ear discharge, No Nose pain, No Nose discharge, No Nose congestion, No Mouth pain, No Mouth swelling, No Throat pain, No Throat swelling, No Other Cardiovascular: No Chest Pain, No Palpitations, No Orthopnea, No Paroxysmal Noc. Dyspnea, No Edema, No Lt Headedness, No Other Respiratory: No Cough, No Dry, No Shortness of breath, No SOB with excertion, No Wheezing, No Hemoptysis, No Pleuritic Pain, No Sputum, No Other Gastrointestinal: Nausea, Vomiting, Abdominal Pain Genitourinary: No Dysuria, No Frequency, No Incontinence, No Hematuria, No Retention, No Other Musculoskeletal: No other, No neck pain, No shoulder pain, No arm pain, No back pain, No hand pain, No leg pain, No foot pain Skin: No Rash, No Lesions, No Jaundice, No Bruising, No Other Objective Vitals Vital Signs Date Time Temp Pulse Resp B/P (MAP) Pulse Ox O2 Delivery O2 Flow Rate FiO2 01/22/25 08:45 97.8 59 16 100/62 (75) 96 97.8 01/22/25 07:53 Room Air* 0 21 Intake/Output Intake and Output 01/22/25 07:00 Intake Total 2150 ml Output Total 1900 ml Balance 250 ml Intake Oral 1400 ml IV Total 750 ml Output Urine Total 1900 ml # Voids 3 Medications Current Medications Medications Dose Ordered Sig/Kassie Route Start Time Stop Time Status Last Admin Dose Admin Acetaminophen 650 mg Q6HP PRN PO 01/20/25 08:45 Ketorolac Tromethamine 15 mg Q6HPRN PRN IV 01/20/25 08:45 01/25/25 08:44 01/21/25 09:18 15 MG Tamsulosin HCl 0.4 mg DAILY@1900 PO 01/20/25 19:00 01/21/25 18:26 0.4 MG Sodium Chloride 1,000 ml @ 125 mls/hr Q8H IV 01/21/25 13:30 01/22/25 05:30 125 MLS/HR Laboratory Results Laboratory Tests 01/21/25 05:22 Urinalysis Test 01/20/25 09:59 Urine Color Yellow (Yellow) Urine Clarity Clear (Clear) Urine pH 6.0 (5.0-9.0) Urine Specific [place] > 1.050 (1.001-1.035) Urine Protein Trace (Negative) H Urine Ketones 1+ (Negative) H Urine Blood 2+ /uL (Negative) H Urine Nitrite Negative (Negative) Urine Bilirubin Negative (Negative) Urine Urobilinogen Normal mg/dL (Negative) Urine Leukocyte Esterase Negative /uL (Negative) Urine RBC 29 /hpf (0 - 3) Urine Microscopic WBC 2 /HPF (0-3) Urine Squamous Epithelial Cells Few /hpf (<5) Urine Bacteria None seen /hpf (None Seen) Urine Mucus Few (None Seen) Urine Glucose Normal mg/dL (Normal) Labs and/or images reviewed: Labs reviewed by me, Image(s) reviewed by me Assessment/Plan Assessment/Plan Acute abdominal pain due to left-sided nephrolithiasis Acute left-sided nephrolithiasis with associated hydroureteronephrosis status post ESWL by Possible acute viral gastroenteritis Mild NENITA likely due to VMN History of prediabetes History of dyslipidemia Time spent 45 minutes Plan discussed with: Patient My Orders Orders - SEGUN DEJESUS MD Procedure Category Date Status Time Sodium Chloride 0.9% PHA 01/21/25 In Process 13:30 Date of Service: Jan 22, 2025 Billing Provider: SEGUN DEJESUS MD Common Visit Codes: [id number] INP/OBS CARE(HIGH) SEGUN DEJESUS MD Jan 22, 2025 09:12
--- NOTE | 2025-01-22 09:16 | DVHDS2 ---
Discharge Summary Date of Admission Jan 20, 2025 at 08:41 Date of Discharge: Jan 22, 2025 Admitting Diagnosis Left flank pain Wounds: ESWL Labs/Diagnostic Data: Laboratory Results Test 01/21/25 05:22 01/20/25 13:50 01/20/25 09:59 01/19/25 14:01 White Blood Count 5.9 10^3/uL (4.4-10.8) Red Blood Count 4.87 10^6/uL (4.5-5.90) Hemoglobin 14.2 g/dL (13.5-17.5) Hematocrit 41.7 % (41.0-53.0) Mean Corpuscular Volume 85.6 fL (80.0-100.0) Mean Corpuscular Hemoglobin 29.2 pg (28.0-32.0) Mean Corpuscular Hemoglobin Concent 34.1 g/dL (32.0-36.0) Red Cell Distribution Width 13.3 % (11.8-14.3) Platelet Count 325 10^3/uL (140-450) Mean Platelet Volume 8.5 fL (6.9-10.8) Neutrophils (%) (Auto) 88.3 % (37.0-80.0) Lymphocytes (%) (Auto) 9.8 % (10.0-50.0) Monocytes (%) (Auto) 1.8 % (0.0-12.0) Eosinophils (%) (Auto) 0.0 % (0.0-7.0) Basophils (%) (Auto) 0.1 % (0.0-2.0) Neutrophils # (Auto) 5.2 10 ^3/uL (1.6-8.6) Lymphocytes # (Auto) 0.6 10 ^3/uL (0.4-5.4) Monocytes # (Auto) 0.1 10 ^3/uL (0-1.3) Eosinophils # (Auto) 0 10 ^3/uL (0-0.8) Basophils # (Auto) 0 10 ^3/uL (0-0.2) Nucleated Red Blood Cells 0.1 % Sodium Level 144 mmol/L (136-145) Potassium Level 3.5 mmol/L (3.5-5.1) Chloride Level 105 mmol/L (98-107) Carbon Dioxide Level 26 mmol/L (20-31) Anion Gap 13 (5-15) Blood Urea Nitrogen 11 mg/dL (9-23) Creatinine 0.92 mg/dL (0.700-1.30) Glomerular Filtration Rate Calc 113 mL/min (>90) BUN/Creatinine Ratio 12.0 (10.0-20.0) Serum Glucose 113 mg/dL (74-106) Calcium Level 9.3 mg/dL (8.7-10.4) Hemoglobin A1c 5.3 % A1C (<5.7) Triglycerides Level 86 mg/dL (< 150) Cholesterol Level 120 mg/dL (< 200) LDL Cholesterol 79 mg/dL (< 100) HDL Cholesterol 28 mg/dL (40-59) Urine Color Yellow (Yellow) Urine Clarity Clear (Clear) Urine pH 6.0 (5.0-9.0) Urine Specific [place] > 1.050 (1.001-1.035) Urine Protein Trace (Negative) Urine Ketones 1+ (Negative) Urine Blood 2+ /uL (Negative) Urine Nitrite Negative (Negative) Urine Bilirubin Negative (Negative) Urine Urobilinogen Normal mg/dL (Negative) Urine Leukocyte Esterase Negative /uL (Negative) Urine RBC 29 /hpf (0 - 3) Urine Microscopic WBC 2 /HPF (0-3) Urine Squamous Epithelial Cells Few /hpf (<5) Urine Bacteria None seen /hpf (None Seen) Urine Mucus Few (None Seen) Urine Glucose Normal mg/dL (Normal) Urine Opiates Screen Pos (NEGATIVE) Urine Fentanyl Screen Neg (NEGATIVE) Urine Barbiturates Screen Neg (NEGATIVE) Urine Phencyclidine Screen Neg (NEGATIVE) Urine Amphetamines Screen Neg (NEGATIVE) Urine Benzodiazepines Screen Neg (NEGATIVE) Urine Cocaine Screen Neg (NEGATIVE) Urine Cannabinoids Screen Neg (NEGATIVE) Total Bilirubin 0.5 mg/dL (0.2-1.0) Aspartate Amino Transferase (AST) 17 U/L (13-40) Alanine Aminotransferase (ALT) 40 U/L (7-40) Alkaline Phosphatase 87 U/L (46-116) Total Protein 7.3 g/dL (5.7-8.2) Albumin 4.9 g/dL (3.2-4.8) Lipase 44 U/L (12-53) Other Laboratory Tests 01/21/25 05:22 Brief Hx & Hospital Course: 34-year-old male came in for left flank pain found to have 5 mm distal left UVJ stone with left hydronephrosis underwent ESWL by Dr. Padilla. Treated with the pain medications IV fluids and Flomax. At the time of discharge patient is asymptomatic stable vital signs afebrile discharged home on Flomax and tramadol he will follow up with the Dr. Padilla in two weeks Consults/Reason for consult Urology Dr. Padilla Operations or Procedures ESWL Condition at Discharge: Fair Final Diagnosis/Problems List Acute abdominal pain due to left-sided nephrolithiasis Acute left-sided nephrolithiasis with 5 mm left UVJ stone associated hydroureteronephrosis status post ESWL by Possible acute viral gastroenteritis Mild NENITA likely due to VMN History of prediabetes History of dyslipidemia Discharge Disposition: Home Discharge Instruct/Medications Diet: Regular Activity: Light activity Follow Up/Referral: Follow up with the primary Dr in one week Follow up with the Urology Dr. Padilla in two weeks Medications: Flomax Tramadol Transmitted to [facility]'s Scheduled Tamsulosin Hcl (Flomax), 1 CAP PO DAILY Tramadol HCl (Tramadol HCl), 50 MG PO QID 39 (Time taken for discharge summary 39 minutes) Discharge Statement: "Patient was advised to return to the ER or call 911 if any headaches, dizziness, shortness of breath, chest pain, abdominal pain, bleeding, fevers, or worsening of medical condition. Patient was counseled about treatment plan, medications, possible side effects, patientverbalized understanding. All questions were answered to the best of my ability. This discharge took greater then 30 minutes in planning, reviewing documentation, counseling the patient, and discussing with other team members." ASSESSMENT ASSESSMENT Hospital Course Uneventful Assessment Acute abdominal pain due to left-sided nephrolithiasis Acute left-sided nephrolithiasis with 5 mm left UVJ stone associated hydroureteronephrosis status post ESWL by Possible acute viral gastroenteritis Mild NENITA likely due to VMN History of prediabetes History of dyslipidemia Date of Service: Jan 22, 2025 Billing Provider: SEGUN DEJESUS MD Common Visit Codes: [id number] DISCH DAY >30min SEGUN DEJESUS MD Jan 22, 2025 09:16
== END 2025-01-22 11:00 | disposition home or self-care (01) | DRG 694 ==
LOC: ER 12:49 → OVERFLOW 01-20 08:41 → CENTRAL 01-20 08:47
PROVIDERS: ADMIT Family Medicine; ATTEND Family Medicine
PROC: 0TF7XZZ Fragmentation in Left Ureter, External Approach (ICD-10-PCS; principal; 2025-01-20 19:50)
DX: N13.2 Hydronephrosis with renal and ureteral calculous obstruction (principal); N17.0 Acute kidney failure with tubular necrosis; A08.4 Viral intestinal infection, unspecified; E78.5 Hyperlipidemia, unspecified; Z79.899 Other long term (current) drug therapy
CPT/HCPCS: 36415; 74177; 76775; 80048; 80053; 80061; 80307; 81001; 83036; 83690; 85025; 96361; 96365; 96375; 96376; 99291; G0378; J1100; J1885; J2250; J2405; J2470; J2704